=== PATIENT | male | born 1945 | race Caucasian/White ===

== ENCOUNTER 2016-06-07 05:48 | Day surgery (SDC) | payer OTHER ==
[2016-06-06 09:14] LABS: HEMOGLOBIN 13.9 g/dL (13.6-17.8)
[2016-06-06 09:28] LABS: CHLORIDE, SERUM 108 MMOL/L (96-112); CO2 (CARBON DIOXIDE) 26 MMOL/L (24-34); GFR AFRICAN AMERICAN 41 ML/MIN (>=60); GFR NON AFRICAN AMERICAN 35 ML/MIN (>=60); POTASSIUM, SERUM 4.4 MMOL/L (3.5-5.3); SODIUM, SERUM 145 MMOL/L (135-148)
[2016-06-06 09:29] LABS: BUN (BLOOD UREA NITROGEN) 27 MG/DL (6-23); CALCIUM, SERUM 9.7 MG/DL (8.5-10.4); GLUCOSE, SERUM 94 MG/DL (60-99)
[2016-06-06 09:58] LABS: ASCORBIC ACID (UR NOT ORDER) NEG (NEG); BILIRUBIN, URINE NEGATIVE (NEG); KETONE, URINE NEGATIVE (NEG); LEUKOCYTE ESTERASE(NOT OR LARGE (NEG)
[2016-06-06 10:00] LABS: WBC (NOT ORDERED) (RFLEX) > 182 (0-5)
--- NOTE | ~2016-06-07 | OP ---
Record Of Operation [place] [address] [place]. [address] NAME: AMISH SALMON : 49 STATUS : [facility]#: [id number] AGE: 70 ADM/REG DATE : 06/07/16 MR#: [id number] REPORT SERV DATE: 06/07/16 DICTATED BY: OLGA GRANT DATE: 06/07/16 REPORT STATUS : Draft TRANSCRIBED BY: MODL DATE: 06/07/16 DATE OF PROCEDURE: 06/07/2016 PREOPERATIVE DIAGNOSIS: Right stiff total knee arthroplasty. POSTOPERATIVE DIAGNOSIS: Right stiff total knee arthroplasty. PROCEDURE PERFORMED: Right knee manipulation under general anesthesia with intraarticular injection and total knee arthroplasty. ANESTHESIA: General. PROCEDURE IN DETAIL: The patient was clearly identified. After obtaining informed consent, the patient was brought to the PACU at [facility] where he was induced under general anesthesia. A time-out procedure was performed. His right knee range of motion approximately 5 to 85 degrees, and subsequently gentle manipulation reveals full extension and flexion comfortably to 130 degrees. Uneventfully, this was performed. There was no evidence of any complications. Subsequently, a medial parapatellar region is prepped with Betadine and a combination of morphine and ropivacaine and Depo-Medrol instilled within the joint. Band-Aids applied. The patient was allowed to awaken and was transferred to the recovery room in stable condition having tolerated the procedure well. ESTIMATED BLOOD LOSS: Less than 1 mL. FLUIDS: 300 mL. TOURNIQUET TIME: None. PATHOLOGY: None. MICROBIOLOGY: None. COMPLICATIONS: None. SPONGE AND NEEDLE COUNT: Not applicable. JIN/CLAUDIA Olga Grant M.D. / [id number] CC: Record Of Operation [place] [address] [place]. [address] NAME: AMISH SALOMN : 49 [place] : [facility] [place] [id number] AGE: 70 ADM/REG DATE : 06/07/16 MR#: [id number] REPORT SERV DATE: 06/07/16 DICTATED BY: OLGA GRANT DATE: 06/07/16 REPORT STATUS : Draft TRANSCRIBED BY: CLAUDIA DATE: 06/07/16 Antelmo Dias D.O.
[~2016-06-07 05:48] MED LIST: ASA5GR PO; NORCO1 TA1 PO; NORV5 PO; PRILOSEC40 MG PO; ZIAC2 PO; ZIAC5 PO
== END 2016-06-07 14:44 | disposition home or self-care (01) ==
LOC: SDC 05:48
PROVIDERS: Orthopaedic Surgery
PROC: 3E0U33Z Introduction of Anti-inflammatory into Joints, Percutaneous Approach (ICD-10-PCS; 2016-06-07)
PROC: 3E0U3BZ Introduction of Anesthetic Agent into Joints, Percutaneous Approach (ICD-10-PCS; 2016-06-07)
PROC: 0SSCXZZ Reposition Right Knee Joint, External Approach (ICD-10-PCS; principal; 2016-06-07 07:15)
DX: M25.661 Stiffness of right knee, not elsewhere classified (principal); I10 Essential (primary) hypertension; G47.30 Sleep apnea, unspecified; K21.9 Gastro-esophageal reflux disease without esophagitis; Z79.82 Long term (current) use of aspirin; Z79.891 Long term (current) use of opiate analgesic; Z79.899 Other long term (current) drug therapy; Z99.89 Dependence on other enabling machines and devices; Z87.442 Personal history of urinary calculi; Z98.890 Other specified postprocedural states; Z87.891 Personal history of nicotine dependence; Z86.73 Personal history of transient ischemic attack (TIA), and cerebral infarction without residual deficits; Z98.41 Cataract extraction status, right eye; Z98.42 Cataract extraction status, left eye
CPT/HCPCS: 80048; 81001; 85014; 85018; 87077; 87086; 87186; 93005; A9270-GY; J1040; J2274